=== PATIENT | female | born 2000 | race Caucasian/White ===

== ENCOUNTER 2020-05-31 13:08 | Emergency (ER) | payer MEDICAID ==
[~2020-05-31] VITALS: Ht 175.3 cm; Wt 65.3 kg
[2020-05-31 13:31] VITALS: BP 126/71; Ht 175.3 cm; Wt 65.3 kg
== END 2020-05-31 13:57 | disposition home or self-care (01) ==
LOC: ED 13:08
DX: J03.90 Acute tonsillitis, unspecified (principal)

== ENCOUNTER 2020-06-01 12:27 | Emergency (ER) | payer MEDICAID, SELFPAY ==
[~2020-06-01] VITALS: Ht 175.3 cm; Wt 63.5 kg
[2020-06-01 12:38] VITALS: BP 111/72; Ht 175.3 cm; Wt 63.5 kg
== END 2020-06-01 13:28 | disposition home or self-care (01) ==
LOC: ED 12:27
DX: J02.8 Acute pharyngitis due to other specified organisms (principal); Z20.828 Contact with and (suspected) exposure to other viral communicable diseases
CPT/HCPCS: U0003-CS

== ENCOUNTER 2020-11-14 17:38 | Emergency (ER) | payer MEDICAID ==
[~2020-11-14] VITALS: Ht 175.3 cm; Wt 62.1 kg
[2020-11-14 17:48] VITALS: BP 115/57; Ht 175.3 cm; Wt 62.1 kg
== END 2020-11-14 19:04 | disposition home or self-care (01) ==
LOC: ED 17:38
DX: R07.89 Other chest pain (principal)